=== PATIENT | female | born 1935 | race Caucasian/White ===

== ENCOUNTER 2019-10-13 23:07 | Inpatient (IN) | payer OTHER, SELFPAY ==
[~2019-10-13] VITALS: Ht 160 cm; Wt 68.0 kg
[2019-10-13 23:07] VITALS: BP_SYST 124
--- NOTE | 2019-10-13 23:10 | NUR ---
PT BIB BLS A&OX4 C/O OF WITNESSED FALL ONTO HER LEFT HIP ONTO TILE WHEN STANDING UP FROM KITCHEN TABLE AFTER TWO GLASSES OF WINE. PT DENIES LOSS OF CONSCIOUSNESS OR HITTING HER HEAD. NO SHORTENING/ROTATING. PAIN 4 OUT OF 10. PT DENIES TAKING BLOOD THINNERS. PT STATES NO OTHER MEDICAL COMPLAINTS AT THIS TIME. WILL CONTINUE TO MONITOR.
--- NOTE | 2019-10-13 23:10 | NUR ---
Note teridevyn in EDM - 10/13/19 at 2319 by DEMETRIO PT A&OX4 C/O OF WITNESSED FALL ONTO HER LEFT HIP ONTO TILE WHEN STANDING UP FROM KITCHEN TABLE AFTER TWO GLASSES OF WINE. PT DENIES LOSS OF CONSCIOUSNESS OR HITTING HER HEAD. NO SHORTENING/ROTATING. PAIN 4 OUT OF 10. PT DENIES TAKING BLOOD THINNERS.
--- NOTE | 2019-10-13 23:15 | NUR ---
ER Dr. ROGERS at bedside examining patient.
[2019-10-13] MEDS ORDERED: NACL 0.9% 1,000 ML IV ONE (23:20)
--- NOTE | 2019-10-13 23:35 | NUR ---
XRAY AT BEDSIDE
[2019-10-14] VITALS (7 sets, daily range): BP systolic 107–146
--- NOTE | 2019-10-14 00:05 | NUR ---
# 20 gauge angiocath placed to LAC. Use of asceptic technique. Opsite placed over site. Blood return noted. Blood for lab drawn from site. Flushed with 10 cc of normal saline. No evidence of infiltration noted. Patient tolerated well.
[2019-10-14] MEDS ORDERED: PANT20TA3 PO (00:44)
[2019-10-14] MEDS ORDERED: DIAZ5SOL PO (00:44)
[2019-10-14] MEDS ORDERED: DULO30CA52 PO (00:44)
[2019-10-14] MEDS ORDERED: CLOP100P PO (00:44)
[2019-10-14] MEDS ORDERED: CHOL100053 PO (00:44)
[2019-10-14] MEDS ORDERED: CORCR10 PO (00:44)
[2019-10-14] MEDS ORDERED: ASPI-989 PO (00:44)
[2019-10-14] MEDS ORDERED: OMEP10CA5 PO (00:44)
[2019-10-14] MEDS ORDERED: LEVO175T7 PO (00:44)
--- NOTE | 2019-10-14 00:44 | NUR ---
Medication reconciliation completed with information provided by PATIENT. Any prior medication reconciliation on file was reviewed and corrected.
--- NOTE | 2019-10-14 00:50 | NUR ---
SPOKE WITH SON MIKE TO UPDATE HIM ON PATIENTS STATUS.
[2019-10-14 00:53] LABS: BASOPHILS % (AUTO) 0.5 % (0.0-2.0); EOSINOPHILS # (AUTO) 0.2 K/uL (0.0-0.4); EOSINOPHILS % (AUTO) 2.7 % (0.0-4.0); HEMATOCRIT 37.9 % (36-48); HEMOGLOBIN 12.6 g/dL (12.0-16.0); LYMPHOCYTES # (AUTO) 1.4 K/uL (1.0-5.5); MEAN CORPUSCULAR HEMOGLOBIN 33 pg (27-31); MEAN CORPUSCULAR HGB CONC 33 % (32-36); MEAN CORPUSCULAR VOLUME 98 fL (79.0-98.0); MONOCYTES # (AUTO) 0.7 K/uL (0.0-1.0); MONOCYTES % (AUTO) 10.2 % (1.7-9.3); NEUTROPHILS # (AUTO) 4.5 K/uL (1.8-7.7); NEUTROPHILS % (AUTO) 66.6 % (40.0-70.0); PLATELET COUNT (AUTO) 183 K/uL (130-430); RED BLOOD CELL COUNT(AUTO) 3.85 MIL/uL (4.2-6.2); RED CELL DISTRIBUTION WIDTH 13.4 % (9.0-15.0); WHITE BLOOD COUNT (AUTO) 6.8 K/uL (4.8-10.8)
[2019-10-14 01:02] LABS: ANION GAP 9 (5-15); CHLORIDE 102 mmol/L (98-107); GLUCOSE 112 mg/dL (70-99); SODIUM SERUM 138 mmol/L (136-145); UREA NITROGEN, BLOOD 15 mg/dL (8-21)
[2019-10-14 01:08] LABS: ALANINE AMINOTRANSFERASE 26 U/L (12-78); ALBUMIN 4.3 g/dL (3.4-4.8); ASPARTATE AMINOTRANSFERASE 28 U/L (10-37); TOTAL BILIRUBIN 0.2 mg/dL (0.0-1.0)
--- NOTE | 2019-10-14 01:10 | NUR ---
RECEIVED ADMIT ORDERS FROM DR. HERNANDEZ FOR PATIENT.
--- NOTE | 2019-10-14 01:11 | NUR ---
CALLED TO REQUEST BED FROM [facility].
--- NOTE | 2019-10-14 01:15 | NUR ---
Patient's code status is FULL CODE paperwork completed and placed in chart.
[2019-10-14 01:18] LABS: PROTHROMBIN TIME 9.9 SECS (9.5-12.5)
[2019-10-14] MEDS ORDERED: DIPHENHYDRAMINE INJ 50 MG/ML VIAL IVP ONE (01:30)
[2019-10-14] MEDS ORDERED: MORPHINE 2 MG/ML INJ. SYRINGE IVP ONE (01:30)
[2019-10-14 01:43] LABS: BILIRUBIN,URINE NEGATIVE (NEGATIVE); COLOR,URINE YELLOW (YELLOW); GLUCOSE,URINE NEGATIVE (NEGATIVE); KETONES,URINE NEGATIVE (NEGATIVE); LEUKOCYTE ESTERASE ,URINE 2+ (NEGATIVE); NITRITE, URINE POSITIVE (NEGATIVE); PROTEIN URINE NEGATIVE (NEGATIVE); UROBILINOGEN,URINE 0.2 (0.2-1.0)
[2019-10-14 02:05] LABS: BLOOD, URINE TRACE (NEGATIVE); CLARITY/URINE SLIGHTLY HAZY (CLEAR)
--- NOTE | 2019-10-14 02:05 | NUR ---
Patient will be admitted to care of DR. ROSALES. Admitted to [facility] unit. Will go to room 108A. Belongings list completed. Complete and up to date summary report printed. SBAR report to be given at bedside with opportunity for questions.
--- NOTE | 2019-10-14 02:11 | NUR ---
CALLED AND GAVE REPORT TO DHIRAJ TOSCANO
--- NOTE | 2019-10-14 02:11 | NUR ---
Transfer to [facility] via ACLS protocol. Licensed nurse present. IV present no signs or symptoms of infiltration.
[2019-10-14 02:15] LABS: BACTERIA,URINE MODERATE /HPF (None Seen)
--- NOTE | 2019-10-14 02:22 | NUR ---
ADMIT NOTE Received pt from ER to the floor with a diagnosis of left hip fracture. Admission process initiated. patient oriented to pain management, safety and call light-teach back done.
[2019-10-14] MEDS ORDERED: ALBUTEROL SULFATE 0.083% 2.5 MG/3 ML VIAL.NEB INH PRN (02:30)
--- NOTE | 2019-10-14 02:30 | NUR ---
pt.admitted to the unit:mst from the er-dept.pt.received in stable status.pt.presents admit dx;lt.hip fx@home.pt.presents lt;antecubital iv access;iv fluids infusing. pt.presents lt.hip:fx status.pt.posited she presents pain.to review the emar med-list.pt.repositioned.v/s assessed values w/in normal limits.o2-sat5=96%@room air;unlabored breathing pattern/character.call light/ telephone place w/in reach of the pt.demonstration provided to the pt.
[2019-10-14] MEDS: MORPHINE 2 MG/ML INJ. SYRINGE IVP PRN ×2 (03:57→13:32)
[2019-10-14] MEDS ORDERED: ONDANSETRON HCL 4 MG/2 ML VIAL IVP PRN (04:00)
--- NOTE | 2019-10-14 04:00 | NUR ---
pt.assessed.v/s assessed;values w/in normal limits.pt.had requested medication;pain.i have administered morphine;2mg ivp.to re-assess the pain medication efficacy per pain mgx;prototcol.i have administered rocephine;abx;ivpb initial dose.i have assisted the pt.w the bedpan.pt.did mictracion.o2-sat%=98%@room air;unlabored.pt.repositioned.call light/telephone placed w/in reach of the pt.dr's consults;;ortho/;cardio page placed.
[2019-10-14] MEDS ORDERED: cefTRIAXone 1 GM VIAL ONE (04:27)
[2019-10-14] MEDS: cefTRIAXone 1 GM in D5W 50 ML IV SCH (04:30)
[2019-10-14] MEDS: D5/0.45 NS 1,000 ML IV SCH ×2 (04:34→15:20)
--- NOTE | 2019-10-14 04:34 | NUR ---
CONSULT: CONSULT CALLED FOR DR. MISHRA I SPOKE WITH DOMINIQUE BLACKWELL REASON FOR CONSULT: PACEMAKER CLEARANCE REQUESTING CONSULT: DR. ROSALES DIAGNOSTIC ASSISTANT PHONE NUMBER: [phone]
--- NOTE | 2019-10-14 04:39 | NUR ---
CONSULT: CONSULT CALLED FOR DR. JOHN LABOY DAMPPROOFER THIS MORNING I SPOKE WITH DOMINIQUE BLACKWELL REASON FOR CONSULT: HIP FRACTURE REQUESTING CONSULT: DR. ROSALES SLITTER AND REWINDER MACHINE OPERATOR PHONE NUMBER: [phone] EXCHANGE ASKED ME FOR INSURANCE SHE SAID SHE DO NOT THINK THAT MIGHT NOT TAKE THIS INSURANCE SHE SENT THE CONSULT IS UP TO THE DOCTOR TO DECIDE
--- NOTE | 2019-10-14 05:58 | NUR ---
pt.assessed.pt.presents quiescent affect;calm,somnolent.pt.assessed for cleanliness.pt.repositioned.iv access intact; patent iv fluids infusing.general status stable.respiratory status stable;unlabored.call light/telephone placed w/in reach of the pt.
--- NOTE | 2019-10-14 06:53 | NUR ---
Nutrition Update Ruddy Scale 16 noted. Pt admitted for Left Hip Fracture Diet: NPO BMI: 26.6 kg/m2 RD to follow per nutrition care standards.
--- NOTE | 2019-10-14 07:30 | NUR ---
OPENING NOTES: PT IS AWAKE, ALERT, RESPIRATIONS EVEN AND UNLABORED. NO ACUTE DISTRESS NOTED. NO PAIN NOTED. WILL CONTINUE TO MONITOR PATIENT.
--- NOTE | 2019-10-14 08:15 | NUR ---
Spoke with Dr. Polk. He asked us to call Dr. Garcias since patient has [employer] insurance. Paged Dr. Souza for new order. Dr. Souza returned call and asked that we call Dr. Coles for consult. Dr. Coles returned call.
--- NOTE | 2019-10-14 10:45 | NUR ---
PT AGREED TO COVID-19 SWAB VIA NASAL ROUTE. SPECIMEN SUCCESSFULLY COLLECTED. NO ACUTE DISTRESS NOTED AND PT TOLERATED PROCEDURE WELL. Addendum: 10/14/19 at 1857 by Yung Morales RN SPECIMEN WAS DELIVERED TO LAB
--- NOTE | 2019-10-14 18:57 | NUR ---
CLOSING NOTES: HOURLY ROUNDING PERFORMED. PT IS AWAKE, ALERT, RESPIRATIONS EVEN AND UNLABORED. NO ACUTE DISTRESS NOTED. NO PAIN NOTED. WILL ENDORSE TO WOUND/OSTOMY NURSE FOR CONTINUITY OF CARE. PT WILL HAVE SURGERY TOMORROW WITH DR. LOPEZ AND COVID SWAB HAS ALREADY BEEN COLLECTED. PT IS ON REGULAR DIET FOR NOW AND MAY EAT BREAKFAST TOMORROW MORNING 10/15/19 BUT AFTER BREAKFAST THE PATIENT MUST BE NPO AGAIN PER DR. LOPEZ.
--- NOTE | 2019-10-14 20:45 | NUR ---
Opening notes Pt AAOx2, VSS, afebrile. No s/s distress noted. No c/o pain at this time. IVF infusing at ordered rate L. hand 24G clear and patent. Morales catheter draining to gravity. Etienne SCDs on. Bed low, locked, siderails upx 3. Trapeze in place. Call light within reach. To monitor.
--- NOTE | 2019-10-14 20:57 | NUR ---
Paged Dr. Polk, simulation engineer for Dr. Coles s/w Julita
--- NOTE | 2019-10-14 21:08 | NUR ---
Spoke with MD Carty and spoke with Dr. Coles to ask if he has spoken with pt's son Won, per MD not yet.
[2019-10-15] VITALS: BP_SYST 135
--- NOTE | 2019-10-15 | NUR ---
IV re-start IV L. hand not patent. DC'd IV catheter tip intact. IV restarted x 1 attempt Right forearm 22G via aseptic technique, good blood return. Pt tolerated well. IVF resumed. To monitor.
[2019-10-15] MEDS: D5/0.45 NS 1,000 ML IV SCH ×3 (00:11→20:00)
[2019-10-15 00:54] VITALS: BP_SYST 144
[2019-10-15] MEDS: cefTRIAXone 1 GM in D5W 50 ML IV SCH (01:46)
--- NOTE | 2019-10-15 02:05 | NUR ---
Rounds Pt asleep, resting in bed. IVF infusing at ordered rate R. FA. Call light within reach. Safety measures in place. To monitor.
[2019-10-15] MEDS: MORPHINE 2 MG/ML INJ. SYRINGE IVP PRN (05:18)
--- NOTE | 2019-10-15 05:50 | NUR ---
Closing notes Pt awake, c/o pain L hip 11/07, medicated with Morphine 2mg IVP as needed. IVF infusing at ordered rate R. FA 22G no s/s infiltration. Call light within reach. Etienne SCDs in place. Pt repositioned. Etienne heels floated on pillow. To endorse to AM nurse.
[2019-10-15 06:03] LABS: BASOPHILS # (AUTO) 0.1 K/uL (0.0-0.2); BASOPHILS % (AUTO) 0.5 % (0.0-2.0); EOSINOPHILS # (AUTO) 0.2 K/uL (0.0-0.4); EOSINOPHILS % (AUTO) 1.7 % (0.0-4.0); HEMATOCRIT 38.4 % (36-48); HEMOGLOBIN 12.6 g/dL (12.0-16.0); LYMPHOCYTES # (AUTO) 1.1 K/uL (1.0-5.5); LYMPHOCYTES % (AUTO) 10.2 % (20.5-51.5); MEAN CORPUSCULAR HEMOGLOBIN 32 pg (27-31); MEAN CORPUSCULAR HGB CONC 33 % (32-36); MEAN CORPUSCULAR VOLUME 97 fL (79.0-98.0); MONOCYTES # (AUTO) 1.1 K/uL (0.0-1.0); MONOCYTES % (AUTO) 9.4 % (1.7-9.3); NEUTROPHILS # (AUTO) 8.7 K/uL (1.8-7.7); NEUTROPHILS % (AUTO) 78.2 % (40.0-70.0); PLATELET COUNT (AUTO) 184 K/uL (130-430); RED BLOOD CELL COUNT(AUTO) 3.95 MIL/uL (4.2-6.2); RED CELL DISTRIBUTION WIDTH 13.2 % (9.0-15.0); WHITE BLOOD COUNT (AUTO) 11.1 K/uL (4.8-10.8)
[2019-10-15 06:27] LABS: ALANINE AMINOTRANSFERASE 20 U/L (12-78); ALBUMIN 3.6 g/dL (3.4-4.8); ANION GAP 9 (5-15); ASPARTATE AMINOTRANSFERASE 21 U/L (10-37); CALCIUM 8.1 mg/dL (8.4-11.0); CHLORIDE 97 mmol/L (98-107); CREATININE 0.81 mg/dL (0.55-1.30); GLUCOSE 146 mg/dL (70-99); POTASSIUM 3.3 mmol/L (3.5-5.1); SODIUM SERUM 130 mmol/L (136-145); TOTAL BILIRUBIN 0.7 mg/dL (0.0-1.0); UREA NITROGEN, BLOOD 12 mg/dL (8-21)
[2019-10-15] MEDS: LEVOTHYROXINE SODIUM 0.075 MG TABLET PO SCH (07:00)
--- NOTE | 2019-10-15 07:20 | NUR ---
INITIAL NOTE PT RESTING IN BED, NO ACUTE DISTRESS NOTED, BREATHING EVEN AND UNLABORED. PT ON ROOM AIR. SATURATING AT 97%. IVF INFUSING WELL. CHENG DRAINING TO GRAVITY. SCD'S IN PLACE. PT REMAINS NPO. CALL LIGHT WITHIN REACH, BED IN LOW AND LOCKED POSITION WITH BED ALARM ON.
[2019-10-15 08:00] VITALS: BP_SYST 131
[2019-10-15] MEDS: PANTOPRAZOLE SODIUM 40 MG TAB PO SCH (08:39)
[2019-10-15] MEDS: CARVEDILOL 12.5 MG TABLET (COREG) PO SCH ×2 (08:39→21:08)
[2019-10-15] MEDS: DULoxetine HCL 30 MG CAPSULE.DR (CYMBALTA) PO SCH (08:39)
[2019-10-15] MEDS: ASPIRIN 81 MG TAB.CHEW PO SCH (08:40)
--- NOTE | 2019-10-15 09:09 | NUR ---
DR. ROSALES/RN ROUNDS MD AT BEDSIDE EXAMINING PT. INFORMED K 3.3. NEW ORDERS RECEIVED TO GIVE 40 MEQ PO KDURR. VERIFIED WITH READ BACK. PT STABLE, PAIN CONTROLLED AT THIS TIME.
[2019-10-15] MEDS ORDERED: POTASSIUM CHLORIDE 20 MEQ TAB.PRT.SR PO ONE (09:15)
--- NOTE | 2019-10-15 10:46 | NUR ---
RN ROUNDS PT RESTING QUIETLY IN BED. NO SIGNS OF ACUTE DISTRESS. WILL CONTINUE TO MONITOR.
[2019-10-15 11:38] VITALS: BP_SYST 141
--- NOTE | 2019-10-15 12:46 | NUR ---
RN ROUNDS REORIENTED PT ON CHENG CATHETER. PT VERBALIZED UNDERSTANDING. INFORMED PT THAT SURGERY IS SCHEDULED FOR 2PM.
[2019-10-15] MEDS ORDERED: POLYMYXIN 500,000/BACIT.10,000 UNITS in NS IRR 1 L IR ONE (14:11)
[2019-10-15] MEDS ORDERED: BUPIVACAINE /DEX PF 0.75% SPINAL 2 ML AMP INJ ONE (14:30)
[2019-10-15] MEDS ORDERED: MORPHINE SULFATE 10MG/10ML PF AMP EP ONE (14:30)
[2019-10-15] MEDS ORDERED: MIDAZOLAM HCL 5 MG/5 ML VIAL IVP ONE (14:30)
[2019-10-15] MEDS ORDERED: LR 1,000 ML IV.SOLN IV ONE (14:30)
[2019-10-15] MEDS ORDERED: CEFAZOLIN 2 GM IVPB PREMIX 50 ML IV ONE (14:30)
[2019-10-15] MEDS ORDERED: PROPOFOL 200MG/ 20ML VIAL (DIPRIVAN) IV ONE (14:30)
[2019-10-15] MEDS ORDERED: BUPIVACAINE LIPOSOME/PF 266 MG/20 ML VIAL INFIL ONE ×2 (14:30→16:50)
[2019-10-15] MEDS ORDERED: NORMAL SALINE 10 ML VIAL IVP ONE (14:30)
[2019-10-15] MEDS ORDERED: BUPIVACAINE /PF 0.25% 30 ML VIAL INJ ONE (14:30)
--- NOTE | 2019-10-15 14:50 | NUR ---
LEFT TO OR PT STABLE, TAKEN VIA GURNEY BY OR NURSES. DR. LOPEZ SPOKE WITH LAURA MCKEON, CONSENT SIGNED.
[2019-10-15] MEDS ORDERED: NALBUPHINE HCL 10 MG/ML AMP IVP PRN (16:00)
[2019-10-15] MEDS ORDERED: fentaNYL CITRATE/PF 100 MCG/2 ML AMP IVP PRN ×2 (16:00)
[2019-10-15] MEDS ORDERED: ONDANSETRON HCL 4 MG/2 ML VIAL IVP PRN (16:00)
[2019-10-15] MEDS ORDERED: NALOXONE HCL 0.4 MG/ML AMP (NARCAN) IVP PRN ×2 (16:00)
[2019-10-15] MEDS ORDERED: MORPHINE SULFATE 10MG/10ML PF AMP SP SCH (16:00)
[2019-10-15] MEDS ORDERED: DIPHENHYDRAMINE INJ 50 MG/ML VIAL IVP PRN (16:00)
[2019-10-15] MEDS ORDERED: KETOROLAC TROMETHAMINE 60 MG/2 ML VIAL IM PRN (16:00)
[2019-10-15] MEDS ORDERED: ENOXAPARIN SODIUM 40 MG/0.4 ML SYRINGE SUBCUT ONE (16:30)
--- NOTE | 2019-10-15 18:18 | NUR ---
BACK FROM OR PT AWAKE, PAIN CONTROLLED AT THIS TIME. IVF INFUSING WELL. CHENG DRAINING. ORDERED DINNER TRAY FOR PT.
--- NOTE | 2019-10-15 19:10 | NUR ---
OPENING NOTE: Patient is awake and eating dinner unassisted at this time. Patient is AOx2. No s/s of acute distress noted. Breathing is even and unlabored. Patient attached to 3L NC and tolerating well, saturating at 98%. IVF are infusing well. IV site without redness, infiltration or s/s of infection. Patient has original surgical dressing applied. Dressing is clean, dry, and intact without signs of active bleeding. Will continue to monitor throughout the shift. Morales catheter is attached, patent, and draining by gravity. Abduction pillow between thighs of patient due to post hip surgery. Patient is without complaints of pain at this time. SCDs are attached and operating. Bed locked in lowest position, bed alarm on, call light with patient. Patient educated on use and importance of call light. Patient verbalized understanding but had trouble demonstrating proper use. Will continue to re-educate and re-orient patient throughout the shift. Post-op vitals are being documented. Patient's vitals are stable. No further needs at this time. Will continue to monitor.
--- NOTE | 2019-10-15 19:20 | NUR ---
CLOSING NOTE PT EATING DINNER, TOLERATING WELL. PAIN CONTROLLED AT THIS TIME. IVF INFUSING WELL. CHENG DRAINING TO GRAVITY. CALL LIGHT WITHIN REACH, BED IN LOW AND LOCKED POSITIONED WITH BED ALARM ON. ALL NEEDS MET THROUGHOUT SHIFT. PT CARE ENDORSED TO BONE DRIER RN.
[2019-10-15 20:00] VITALS: BP_SYST 126
[2019-10-15] MEDS: DOCUSATE SODIUM 100 MG CAPSULE PO SCH (21:07)
[2019-10-15] MEDS: CEFAZOLIN 1 GM IVPB PREMIX 50 ML IV SCH (21:09)
--- NOTE | 2019-10-15 23:15 | NUR ---
ROUNDS/FINISHED EATING DINNER: Patient has completed eating dinner at this time, 50%. Patient without complaints of nausea at this time. No s/s of acute distress noted. Breathing is even and unlabored. Patient attached to 3L NC and tolerating well. No further needs at this time. Bed locked in lowest position, bed alarm on, call light with patient. Will continue to monitor. Addendum: 10/16/19 at 0134 by Loan Lobato RN TIME FOR THIS WAS 2
--- NOTE | 2019-10-15 23:16 | NUR ---
ROUNDS: Patient is sleeping at this time. No s/s of acute distress noted. Breathing is even and unlabored. Patient attached to 3L NC and tolerating well. No further needs at this time. Bed locked in lowest position, bed alarm on, call light with patient. Will continue to monitor.
[2019-10-16] VITALS: BP_SYST 132
[2019-10-16] MEDS: D5/0.45 NS 1,000 ML IV SCH ×2 (02:34→15:19)
[2019-10-16] MEDS: cefTRIAXone 1 GM in D5W 50 ML IV SCH (02:34)
--- NOTE | 2019-10-16 03:45 | NUR ---
ROUNDS: Patient is laying in bed at this time, awake. No s/s of acute distress noted. Breathing is even and unlabored. Patient attached to 3L NC and tolerating well. No further needs at this time. Bed locked in lowest position, bed alarm on, call light with patient. Will continue to monitor.
[2019-10-16] MEDS: MORPHINE 2 MG/ML INJ. SYRINGE IVP PRN (04:13)
[2019-10-16] MEDS: LEVOTHYROXINE SODIUM 0.075 MG TABLET PO SCH (06:08)
[2019-10-16] MEDS: CEFAZOLIN 1 GM IVPB PREMIX 50 ML IV SCH (06:09)
--- NOTE | 2019-10-16 06:38 | NUR ---
EPISODE OF ITCHINESS/CLOSING NOTE: Patient is awake and complaining of itchiness at this time. Patient is not sure if she had a reaction to her previous IV abx, but is not showing signs of respiratory distress. No signs of redness or hives. PRN Benadryl given for itchiness. Patient is AOx2. No s/s of acute distress noted. Breathing is even and unlabored. Patient attached to 3L NC and tolerating well, saturating at 98%. IVF are infusing well. IV site without redness, infiltration or s/s of infection. Patient has original surgical dressing applied. Dressing is clean, dry, and intact without signs of active bleeding. Will continue to monitor throughout the shift. Morales catheter is attached, patent, and draining by gravity. Abduction pillow between thighs of patient due to post hip surgery. Patient is without complaints of pain at this time. SCDs are attached and operating. All fall/safety precautions maintained throughout the shift. All needs met throughout the shift. Will continue to monitor patient and effectiveness of medication until endorsement of care to dayshift nurse.
--- NOTE | 2019-10-16 07:30 | NUR ---
INITIAL NOTE PT RESTING IN BED, NO ACUTE DISTRESS NOTED, BREATHING EVEN AND UNLABORED. PT ON 3L NC, SATURATING AT 97%. IVF INFUSING WELL. CHENG DRAINING TO GRAVITY. ABDOMINAL BINDER IN PLACE. CALL LIGHT WITHIN REACH, BED IN LOW AND LOCKED POSITION WITH BED ALARM ON.
[2019-10-16 08:35] LABS: BASOPHILS % (AUTO) 0.2 % (0.0-2.0); EOSINOPHILS % (AUTO) 0.3 % (0.0-4.0); HEMATOCRIT 32.6 % (36-48); HEMOGLOBIN 10.6 g/dL (12.0-16.0); MEAN CORPUSCULAR HEMOGLOBIN 32 pg (27-31); MEAN CORPUSCULAR HGB CONC 33 % (32-36); MEAN CORPUSCULAR VOLUME 99 fL (79.0-98.0); NEUTROPHILS # (AUTO) 10.4 K/uL (1.8-7.7); NEUTROPHILS % (AUTO) 83.5 % (40.0-70.0); PLATELET COUNT (AUTO) 155 K/uL (130-430); RED BLOOD CELL COUNT(AUTO) 3.28 MIL/uL (4.2-6.2); RED CELL DISTRIBUTION WIDTH 13.3 % (9.0-15.0); WHITE BLOOD COUNT (AUTO) 12.4 K/uL (4.8-10.8)
[2019-10-16] MEDS: ASPIRIN 81 MG TAB.CHEW PO SCH (08:54)
[2019-10-16] MEDS: DULoxetine HCL 30 MG CAPSULE.DR (CYMBALTA) PO SCH (08:55)
[2019-10-16] MEDS: DOCUSATE SODIUM 100 MG CAPSULE PO SCH ×2 (08:55→20:52)
[2019-10-16] MEDS: CARVEDILOL 12.5 MG TABLET (COREG) PO SCH ×2 (08:55→20:52)
[2019-10-16] MEDS: PANTOPRAZOLE SODIUM 40 MG TAB PO SCH (08:55)
[2019-10-16] MEDS ORDERED: ENOXAPARIN SODIUM 40 MG/0.4 ML SYRINGE SUBCUT SCH (09:00)
--- NOTE | 2019-10-16 09:30 | NUR ---
RN ROUNDS PT REMOVING COVERS, STATING SHE NEEDS TO GO WALK TO THE BATHROOM. REORIENTED PT TO HOSPITAL AND THAT SHE HAS A CHENG. PT VERBALIZED UNDERSTANDING. REPOSITIONED PT IN BED.
--- NOTE | 2019-10-16 11:30 | NUR ---
RN ROUNDS PT STATES SHE NEEDS TO PEE. REORIENTED PT TO HOSPITAL AND EDUCATED PT ON HER CHENG CATHETER. PT VERBALIZED UNDERSTANDING. WILL CONTINUE TO MONITOR.
[2019-10-16 11:36] VITALS: BP_SYST 131
--- NOTE | 2019-10-16 13:30 | NUR ---
DR. ROSALES/RN ROUNDS AT BEDSIDE EXAMINING PT, INFORMED MD Donovan 3.3. NEW ORDERS FOR KDUR 40MEQ TO BE GIVEN PO. VERIFIED WITH READ BACK. TO [facility] PT TO SNF.
[2019-10-16] MEDS: HYDROcodone/ACETAMIN 5-325 MG TAB (NORCO/ VICODIN) PO PRN ×2 (15:22→20:51)
--- NOTE | 2019-10-16 15:22 | NUR ---
PAIN MEDICATIONS PT COMPLAINING OF LEFT HIP PAIN 5/6. PRN NORCO INDICATED FOR PAIN. EDUCATED PT ON USES AND SIDE EFFECTS OF NORCO. NORCO ADMINISTERED. REPOSITIONED PT AND APPLIED ICE PACK TO LEFT HIP. PT TOLERATED WELL. WILL CONTINUE TO MONITOR.
[2019-10-16 16:02] VITALS: BP_SYST 124
--- NOTE | 2019-10-16 16:56 | NUR ---
DR. ROSALES SPOKE WITH MD VIA PHONE, INFORMED MD PT URINE OUTPUT HAS BEEN 175CC. BLADDER SCAN WAS DONE AND SHOWED 15CC. NEW ORDERS RECEIVED TO STOP IV FLUIDS, VERIFIED WITH READ BACK.
[2019-10-16] MEDS ORDERED: POTASSIUM CHLORIDE 20 MEQ TAB.PRT.SR PO ONE (17:00)
--- NOTE | 2019-10-16 17:05 | NUR ---
Pt may dc to SNF. Pt will go to [facility] Rm 204a [phone]. Will-call BLS transport arranged through [facility].
--- NOTE | 2019-10-16 17:10 | NUR ---
Spoke with Beverly at [facility] patient has room 204A at [facility] She will arrange will call transport with [facility] She will call back with authorization number
--- NOTE | 2019-10-16 18:39 | NUR ---
DISCHARGE NOTE PT RESTING IN BED, NO ACUTE DISTRESS NOTED, BREATHING EVEN AND UNLABORED. PT ON 3L NC, SATURATING AT 97%. IVF INFUSING WELL. CHENG DRAINING TO GRAVITY. CALL LIGHT WITHIN REACH, BED IN LOW AND LOCKED POSITION WITH BED ALARM ON. ALL NEEDS MET THROUGHOUT SHIFT. WILL CONTINUE TO MONITOR UNTIL PT CARE IS ENDORSED TO STRIPER RN.
--- NOTE | 2019-10-16 19:03 | NUR ---
[address]ND [address] DR. LOPEZ AWAITING RETURN CALL FOR CLEARANCE TO DC PT TO SNF.
--- NOTE | 2019-10-16 19:58 | NUR ---
DR. LOPEZ SPOKE WITH MD VIA PHONE, INFORMED MD THAT PT HAS BEEN DC BY DR. ROSALES TO [facility]. PT HAS A ROOM AT [facility]. TO CLEAR PT FOR DISCHARGE, KEEP CHENG IN AND HAVE FACILITY DC CHENG. VERIFIED WITH READ BACK.
[2019-10-16 20:07] VITALS: BP_SYST 141
--- NOTE | 2019-10-16 20:26 | NUR ---
[facility] CORRECTIONAL THERAPY DIRECTOR TIME BETWEEN 60 TO [address] [facility] ROOM 204A
--- NOTE | 2019-10-16 20:36 | NUR ---
TOMA MCGARRY REPORT GIVEN TO GUSTAVO GUERRIER TO BE PICKED UP BY [facility] BETWEEN 9 AND 10PM AND TO BE TAKEN TO ROOM 204A. SON, MIKE BARBOSA INFORMED AND AGREEABLE WITH TRANSFER.
--- NOTE | 2019-10-16 22:10 | NUR ---
CLOSING NOTES PATIENT DISCHARGED TO [facility] ORDERED VIA AMBULANCE WITH STABLE VITAL SIGNS. PATIENT DENIES ANY PAIN AND DISCOMFORT AT THIS TIME. ALL NEEDS ATTENDED TO. SAFETY MEASURES MAINTAINED. PERSONAL BELONGINGS AND DISCHARGE PACKET DONE BY A.M. SHIFT NURSE.
[2019-10-17] MEDS ORDERED: CLOPIDOGREL BISULFATE 75 MG TABLET PO SCH (09:00)
== END 2019-10-16 22:10 | DRG 470 ==
LOC: SED 23:07 → EEVIPCON 10-14 01:10 → SMU 10-14 01:10
PROVIDERS: ADMIT Internal Medicine Hospice and Palliative Medicine; ATTEND Internal Medicine Hospice and Palliative Medicine
PROC: 0SRS0JA Replacement of Left Hip Joint, Femoral Surface with Synthetic Substitute, Uncemented, Open Approach (ICD-10-PCS; principal; 2019-10-15 15:30)
DX: S72.012A Unspecified intracapsular fracture of left femur, initial encounter for closed fracture (principal); N39.0 Urinary tract infection, site not specified; E03.9 Hypothyroidism, unspecified; F03.90 Unspecified dementia, unspecified severity, without behavioral disturbance, psychotic disturbance, mood disturbance, and anxiety; I10 Essential (primary) hypertension; W01.0XXA Fall on same level from slipping, tripping and stumbling without subsequent striking against object, initial encounter; Y93.89 Activity, other specified; Y92.098 Other place in other non-institutional residence as the place of occurrence of the external cause; Z79.02 Long term (current) use of antithrombotics/antiplatelets; Z95.2 Presence of prosthetic heart valve; Z95.0 Presence of cardiac pacemaker; Y99.8 Other external cause status; Z91.041 Radiographic dye allergy status; Z79.82 Long term (current) use of aspirin; Z79.899 Other long term (current) drug therapy; Z90.49 Acquired absence of other specified parts of digestive tract; Z03.818 Encounter for observation for suspected exposure to other biological agents ruled out
CPT/HCPCS: 36415; 71045; 72170-TC; 73502; 80053; 81000-TC; 84484; 85025; 85610-TC; 85730-TC; 87081; 87086; 87186-TC; 88305; 88311; 93005; 93306; 96361; 96374; 96375; 97163; 99285; C9290; J0690; J0696; J1200; J1650; J2250; J2270; J2274; J2704; J3490; J7060; J7120; U0003-CS

== ENCOUNTER 2020-08-22 11:25 | Inpatient (IN) | payer OTHER, SELFPAY ==
[~2020-08-22] VITALS: Ht 160 cm; Wt 59.4 kg
[~2020-08-22 11:25] MED LIST: ASPI-989 PO; CARV10CP10 PO; CHOL100053 PO; CLOP100P PO; DIAZ5SOL PO; DULO30CA52 PO; LEVO175T7 PO; OMEP10CA5 PO; PANT20TA16 PO
[2020-08-22 11:27] VITALS: BP_SYST 93
[2020-08-22 12:15] LABS: BASOPHILS # (AUTO) 0.1 K/uL (0.0-0.2); EOSINOPHILS # (AUTO) 0.3 K/uL (0.0-0.4); EOSINOPHILS % (AUTO) 6.5 % (0.0-4.0); HEMATOCRIT 37.9 % (36-48); HEMOGLOBIN 12.5 g/dL (12.0-16.0); LYMPHOCYTES # (AUTO) 1.3 K/uL (1.0-5.5); LYMPHOCYTES % (AUTO) 26.1 % (20.5-51.5); MEAN CORPUSCULAR HEMOGLOBIN 30 pg (27-31); MEAN CORPUSCULAR HGB CONC 33 % (32-36); MEAN CORPUSCULAR VOLUME 90 fL (79.0-98.0); MONOCYTES # (AUTO) 0.4 K/uL (0.0-1.0); MONOCYTES % (AUTO) 8.5 % (1.7-9.3); NEUTROPHILS % (AUTO) 57.9 % (40.0-70.0); PLATELET COUNT (AUTO) 232 K/uL (130-430); RED CELL DISTRIBUTION WIDTH 13.7 % (9.0-15.0); WHITE BLOOD COUNT (AUTO) 5.1 K/uL (4.8-10.8)
[2020-08-22 12:23] LABS: ANION GAP 10 (5-15); CHLORIDE 105 mmol/L (98-107); CREATININE 1.09 mg/dL (0.55-1.30); GLUCOSE 124 mg/dL (70-99); POTASSIUM 4.7 mmol/L (3.5-5.1); SODIUM SERUM 141 mmol/L (136-145); UREA NITROGEN, BLOOD 20 mg/dL (8-21)
[2020-08-22 12:27] LABS: PROTHROMBIN TIME 10.2 SECS (9.5-12.5)
[2020-08-22 12:29] LABS: ALANINE AMINOTRANSFERASE 22 U/L (12-78); ALBUMIN 3.7 g/dL (3.4-4.8); ASPARTATE AMINOTRANSFERASE 17 U/L (10-37); TOTAL BILIRUBIN 0.3 mg/dL (0.0-1.0)
[2020-08-22 13:06] LABS: BILIRUBIN,URINE NEGATIVE (NEGATIVE); BLOOD, URINE NEGATIVE (NEGATIVE); CLARITY/URINE SL CLOUDY (CLEAR); COLOR,URINE YELLOW (YELLOW); GLUCOSE,URINE NEGATIVE (NEGATIVE); KETONES,URINE NEGATIVE (NEGATIVE); LEUKOCYTE ESTERASE ,URINE 1+ (NEGATIVE); NITRITE, URINE NEGATIVE (NEGATIVE); PH,URINE 7.5 (5.0-8.0); PROTEIN URINE NEGATIVE (NEGATIVE); UROBILINOGEN,URINE 0.2 (0.2-1.0)
[2020-08-22 13:22] LABS: BACTERIA,URINE FEW /HPF (None Seen)
[2020-08-22] MEDS ORDERED: MAGNESIUM CITRATE 300 ML ORAL SOLUTION PO ONE (15:15)
[2020-08-22] MEDS: NACL 0.9% 1,000 ML IV SCH (15:24)
[2020-08-22 16:45] VITALS: BP_SYST 139
[2020-08-22 20:00] VITALS: BP_SYST 116
[2020-08-22] MEDS ORDERED: DIAZEPAM 5 MG TABLET (VALIUM) PO ONE (21:00)
[2020-08-22] MEDS ORDERED: DIAZEPAM 5 MG TABLET (VALIUM) ONE (21:05)
[2020-08-23 00:19] VITALS: BP_SYST 104
[2020-08-23] MEDS: NACL 0.9% 1,000 ML IV SCH (06:59)
[2020-08-23 07:52] VITALS: BP_SYST 121
[2020-08-23] MEDS ORDERED: ZOLPIDEM TARTRATE 5 MG TABLET PO PRN (08:30)
[2020-08-23] MEDS ORDERED: LEVO75TA7 PO (09:11)
[2020-08-23] MEDS ORDERED: COR6.25 PO (09:11)
[2020-08-23] MEDS ORDERED: MIRA25TA PO (09:11)
[2020-08-23] MEDS ORDERED: ASA81 PO (09:11)
[2020-08-23] MEDS ORDERED: OMEP40CA13 PO (09:11)
[2020-08-23] MEDS ORDERED: LORazepam 2 MG/ML VIAL IVP PRN ×2 (09:15→11:00)
[2020-08-23] MEDS ORDERED: DULoxetine HCL 30 MG CAPSULE.DR (CYMBALTA) PO ONE (09:15)
[2020-08-23] MEDS ORDERED: CARVEDILOL 6.25 MG TABLET (COREG) PO ONE (09:15)
[2020-08-23] MEDS ORDERED: CHOLECALCIFEROL (VITAMIN D3) 2,000 UNIT TABLET PO ONE (09:15)
[2020-08-23] MEDS ORDERED: LEVOTHYROXINE SODIUM 0.075 MG TABLET PO ONE (09:15)
[2020-08-23] MEDS ORDERED: ASPIRIN 81 MG TAB.CHEW PO ONE (09:15)
[2020-08-23] MEDS: 0.45% NACL 1,000 ML IV SCH ×2 (09:30→21:50)
[2020-08-23] MEDS ORDERED: PANTOPRAZOLE SODIUM 40 MG TAB PO ONE (09:30)
[2020-08-23] MEDS ORDERED: HEPARIN SODIUM,PORCINE 5,000 UNITS/ML VIAL SUBCUT ONE (09:45)
[2020-08-23] MEDS: cefTRIAXone 1 GM in D5W 50 ML IV SCH (10:07)
[2020-08-23 12:23] VITALS: BP_SYST 109
[2020-08-23] MEDS ORDERED: QUEtiapine FUMARATE 25 MG TABLET PO ONE (14:30)
[2020-08-23 16:19] VITALS: BP_SYST 149
[2020-08-23] MEDS ORDERED: QUEtiapine FUMARATE 25 MG TABLET PO SCH (18:00)
[2020-08-23 19:49] VITALS: BP_SYST 129
[2020-08-23] MEDS: QUEtiapine FUMARATE 25 MG TABLET PO SCH (20:06)
[2020-08-23] MEDS: CARVEDILOL 3.125 MG TABLET (COREG) PO SCH (20:07)
[2020-08-23] MEDS: HEPARIN SODIUM,PORCINE 5,000 UNITS/ML VIAL SUBCUT SCH (20:09)
[2020-08-23] MEDS ORDERED: DONEPEZIL HCL 5 MG TABLET (ARICEPT) PO SCH (21:00)
[2020-08-23] MEDS ORDERED: CARVEDILOL 6.25 MG TABLET (COREG) PO SCH (21:00)
[2020-08-24] VITALS: BP_SYST 110
[2020-08-24] MEDS ORDERED: CHOLECALCIFEROL (VITAMIN D3) 2,000 UNIT TABLET PO SCH (09:00)
[2020-08-24] MEDS ORDERED: DULoxetine HCL 30 MG CAPSULE.DR (CYMBALTA) PO SCH (09:00)
[2020-08-24] MEDS ORDERED: LEVOTHYROXINE SODIUM 0.075 MG TABLET PO SCH (09:00)
[2020-08-24] MEDS ORDERED: ASPIRIN 81 MG TAB.CHEW PO SCH (09:00)
[2020-08-24] MEDS ORDERED: PANTOPRAZOLE SODIUM 40 MG TAB PO SCH (09:00)
[2020-08-24] MEDS: CARVEDILOL 3.125 MG TABLET (COREG) PO SCH (09:08)
[2020-08-24] MEDS: QUEtiapine FUMARATE 25 MG TABLET PO SCH (09:09)
[2020-08-24] MEDS: HEPARIN SODIUM,PORCINE 5,000 UNITS/ML VIAL SUBCUT SCH (09:18)
[2020-08-24] MEDS: cefTRIAXone 1 GM in D5W 50 ML IV SCH (09:41)
[2020-08-24 10:06] VITALS: BP_SYST 134
[2020-08-24] MEDS ORDERED: SER25 PO (10:33)
[2020-08-24 12:00] VITALS: BP_SYST 104; BP_SYST 114
[2020-08-24 13:17] VITALS: BP_SYST 114
== END 2020-08-24 14:30 | disposition hospice, home (50) | DRG 315 ==
LOC: SED 11:25 → EEVIPCON 15:30 → STU 15:30
PROVIDERS: ADMIT Internal Medicine Hospice and Palliative Medicine; ATTEND Internal Medicine Hospice and Palliative Medicine
DX: I95.89 Other hypotension (principal); F03.91 Unspecified dementia, unspecified severity, with behavioral disturbance; N39.0 Urinary tract infection, site not specified; Z95.0 Presence of cardiac pacemaker; I35.0 Nonrheumatic aortic (valve) stenosis; I49.9 Cardiac arrhythmia, unspecified; E03.9 Hypothyroidism, unspecified; Z20.822 Contact with and (suspected) exposure to COVID-19; F41.9 Anxiety disorder, unspecified; G47.00 Insomnia, unspecified; Z95.2 Presence of prosthetic heart valve; Z91.041 Radiographic dye allergy status; Z79.82 Long term (current) use of aspirin; Z79.899 Other long term (current) drug therapy
CPT/HCPCS: 36415; 70450-TC; 71045; 76376; 80053; 81000; 82962; 83605; 84443; 84484; 85025; 85610-TC; 85730-TC; 87040-TC; 87081; 87086; 93005; 99291; G0378; J0696; J1644; J2060; J7030; J7060; Q9967

== ENCOUNTER 2020-09-12 11:19 | Emergency (ER) | payer OTHER, SELFPAY ==
[~2020-09-12] VITALS: Ht 167.6 cm; Wt 59.0 kg
[~2020-09-12 11:19] MED LIST changes: +ASA81 PO; -ASPI-989 PO; -CARV10CP10 PO; -CLOP100P PO; +COR6.25 PO; -DIAZ5SOL PO; -LEVO175T7 PO; +LEVO75TA7 PO; +MIRA25TA PO; -OMEP10CA5 PO; +OMEP40CA13 PO; -PANT20TA16 PO; +SER25 PO
[2020-09-12 11:22] VITALS: BP_SYST 107
[2020-09-12 12:50] LABS: ANION GAP 9 (5-15); CALCIUM 8.3 mg/dL (8.4-11.0); CHLORIDE 102 mmol/L (98-107); CREATININE 0.99 mg/dL (0.55-1.30); GLUCOSE 102 mg/dL (70-99); POTASSIUM 4.1 mmol/L (3.5-5.1); SODIUM SERUM 137 mmol/L (136-145); UREA NITROGEN, BLOOD 18 mg/dL (8-21)
[2020-09-12 12:53] LABS: PROTHROMBIN TIME 10.7 SECS (9.5-12.5)
[2020-09-12 12:55] LABS: ALANINE AMINOTRANSFERASE 17 U/L (12-78); ALBUMIN 3.7 g/dL (3.4-4.8); ASPARTATE AMINOTRANSFERASE 22 U/L (10-37); TOTAL BILIRUBIN 0.6 mg/dL (0.0-1.0)
[2020-09-12 12:59] LABS: BASOPHILS % (AUTO) 0.6 % (0.0-2.0); EOSINOPHILS # (AUTO) 0.1 K/uL (0.0-0.4); EOSINOPHILS % (AUTO) 1.4 % (0.0-4.0); HEMATOCRIT 37.3 % (36-48); HEMOGLOBIN 12.2 g/dL (12.0-16.0); LYMPHOCYTES # (AUTO) 0.3 K/uL (1.0-5.5); LYMPHOCYTES % (AUTO) 5.5 % (20.5-51.5); MEAN CORPUSCULAR HEMOGLOBIN 29 pg (27-31); MEAN CORPUSCULAR HGB CONC 33 % (32-36); MEAN CORPUSCULAR VOLUME 90 fL (79.0-98.0); MONOCYTES # (AUTO) 0.4 K/uL (0.0-1.0); MONOCYTES % (AUTO) 6.6 % (1.7-9.3); NEUTROPHILS # (AUTO) 5.4 K/uL (1.8-7.7); NEUTROPHILS % (AUTO) 85.9 % (40.0-70.0); PLATELET COUNT (AUTO) 161 K/uL (130-430); RED BLOOD CELL COUNT(AUTO) 4.16 MIL/uL (4.2-6.2); RED CELL DISTRIBUTION WIDTH 13.7 % (9.0-15.0); WHITE BLOOD COUNT (AUTO) 6.3 K/uL (4.8-10.8)
[2020-09-12 14:01] LABS: BILIRUBIN,URINE NEGATIVE (NEGATIVE); BLOOD, URINE NEGATIVE (NEGATIVE); CLARITY/URINE CLEAR (CLEAR); COLOR,URINE YELLOW (YELLOW); GLUCOSE,URINE NEGATIVE (NEGATIVE); KETONES,URINE NEGATIVE (NEGATIVE); LEUKOCYTE ESTERASE ,URINE NEGATIVE (NEGATIVE); NITRITE, URINE NEGATIVE (NEGATIVE); PROTEIN URINE NEGATIVE (NEGATIVE); UROBILINOGEN,URINE 0.2 (0.2-1.0)
[2020-09-12 14:14] LABS: BARBITURATE, URINE NEGATIVE (NEG <=200); BENZODIAZEPINE, URINE POSITIVE (NEG <=150); CANNABINOID, URINE POSITIVE (NEG <=50); COCAINE, URINE NEGATIVE (NEG <=150); METHAMPHETAMINES SCREEN,URINE NEGATIVE (NEG <=500); OPIATE, URINE NEGATIVE (NEG <=100); PHENCYCLIDINE SCREEN,URINE NEGATIVE (NEG <=25); UR TRICYCLIC ANTIDEPRESSANTS NEGATIVE (NEG <=300); URINE AMPHETAMINE NEGATIVE (NEG <=500); URINE METHADONE NEGATIVE (NEG <=200); URINE OXYCODONE SCREEN NEGATIVE (NEG <=100); URINE PROPOXYPHENE SCREEN NEGATIVE (NEG <=300)
[2020-09-12 15:53] VITALS: BP_SYST 123
== END 2020-09-12 15:53 | disposition home or self-care (01) ==
LOC: SED 11:19
DX: S70.01XA Contusion of right hip, initial encounter (principal); F03.90 Unspecified dementia, unspecified severity, without behavioral disturbance, psychotic disturbance, mood disturbance, and anxiety; Z88.8 Allergy status to other drugs, medicaments and biological substances; Z79.899 Other long term (current) drug therapy; W01.0XXA Fall on same level from slipping, tripping and stumbling without subsequent striking against object, initial encounter; Y93.89 Activity, other specified; Y92.89 Other specified places as the place of occurrence of the external cause; Y99.8 Other external cause status
CPT/HCPCS: 36415; 70450-TC; 71045; 72192-TC; 76376; 80053; 80307; 81003; 84484; 85025; 85610-TC; 85730-TC; 86886; 86900; 86901; 93005; 99285

== ENCOUNTER 2024-02-16 17:42 | Emergency (ER) | payer OTHER ==
[~2024-02-16] VITALS: Ht 157.5 cm; Wt 59.0 kg
[~2024-02-16 17:42] MED LIST changes: -OMEP40CA13 PO; +OMEP40CA20 PO
[2024-02-16 17:57] VITALS: BP_SYST 140; PULSE 88; RESP 16; TEMP 97.6; O2SAT 95
[2024-02-16] MEDS: cefTRIAXone 1 GM in LIDOCAINE 1%, 20 ML MDV 2.1 ML IM ONE (19:01)
[2024-02-16] MEDS ORDERED: CEPH-548 PO (19:43)
== END 2024-02-16 19:07 | disposition left against medical advice (07) ==
LOC: SED 17:42
DX: L03.211 Cellulitis of face (principal); F03.90 Unspecified dementia, unspecified severity, without behavioral disturbance, psychotic disturbance, mood disturbance, and anxiety; E07.9 Disorder of thyroid, unspecified; Z98.890 Other specified postprocedural states; Z95.0 Presence of cardiac pacemaker; Z91.041 Radiographic dye allergy status; Z79.890 Hormone replacement therapy; Z79.899 Other long term (current) drug therapy; Z79.2 Long term (current) use of antibiotics
CPT/HCPCS: 99283; 96372; J0696; J2003